=== PATIENT | male | born 1950 | race Caucasian/White ===

== ENCOUNTER 2018-02-13 13:12 | Day surgery (SDC) | payer OTHER, MEDICARE, SELFPAY ==
--- NOTE | 2018-02-13 | PATH_ITS ---
[facility] Accession Number: [id number] . 01 Material submitted: . COLON POLYP AT 25CM . 02 Diagnosis: Colon, Polyp at 25 cm, Biopsy: Tubular adenoma. The excision appears complete. MRV/02/15/2018 . 02 Electronically signed: . Rachel Lee MD, Pathologist NPI- [id number] . 01 Gross description: . COLON POLYP AT 25CM: Received in formalin is 1 fragment(s) of jean-baptiste, soft tissue measuring 1.5 x 1.4 x 1.1 cm which is inked, bisected and submitted entirely in 1 cassette(s) /CKI /CKI . 02 Pathologist provided ICD-10: D12.6 . 02 CPT . 495998 Specimen Comment: A duplicate report has been generated due to demographic updates. Performed at: [address] [facility] [address], [place], [place] [id number] MD Frank Hearn MD Phone: [phone] Performed at: 02 [facility] [address] [place], [place] [id number] MD Kd Farrell MD Phone: [phone]
[2018-02-13 13:39] VITALS: BP 142/79; PULSE 83; RESP 16; TEMP 36.3; O2SAT 97; BMI 28.7
--- NOTE | 2018-02-13 15:25 | PM.HP.1 ---
History of Present Illness Date Patient Seen: 02/13/18 Time Patient Seen: 15:25 Chief complaint: [id number] SCREENING COLONOSCOPY Narrative: Very pleasant and healthy 67-year-old gentleman here for his 1st screening colonoscopy. He denies any problems or symptoms related to the function of his GI tract. He reports that he needs a colonoscopy as part of her health maintenance program. Patient History Medical History Impaired vision (Acute) Surgical History History of vasectomy (Acute) Family & Social History Social History: household members none Review of Systems Review of Systems All systems reviewed & are unremarkable except as noted in HPI and below Exam Vital Signs (past 8 hours): - 02/13/18 13:39 Temperature 97.3 F L Pulse Rate 83 Respiratory Rate 16 Blood Pressure 142/79 H Pulse Oximetry 97 Oxygen Delivery Method Room Air Narrative Exam Narrative: Very pleasant well-nourished well-developed gentleman in no distress HEENT: Normocephalic and atraumatic, pupils equal round reactive to light accommodation with anicteric sclera Lungs: Clear to auscultation bilaterally Heart: Regular rate rhythm without murmur rub or gallop Abdomen: Soft, nontender, active bowel sounds Extremities: Warm well perfused Assessment & Plan Plan: Assessment/Plan Narrative: Geena gentleman who is remarkably healthy and presents for his 1st screening colonoscopy. We discussed the risks and benefits of the procedure the patient expressed desire to complete it today
[2018-02-13] MEDS: SODIUM CHLORIDE 0.9% 1,000 ML 84 ML IV (15:56)
[2018-02-13] MEDS: MIDAZOLAM 5 MG/5 ML VIAL 6 MG IV (16:11)
[2018-02-13] MEDS: fentaNYL 250 MCG/5 ML INJ IV (16:11)
--- NOTE | 2018-02-13 16:35 | PM.OP.1 ---
Operative Date/Time/Diagnoses Date of procedure: 02/13/18 Time of procedure: 16:35 Pre-op diagnosis: Screening Post-op diagnosis: same Procedure & Clinicians Procedure: Colonoscopy to the cecum with polypectomy Same procedure as scheduled: Yes Indications: No prior colonoscopy Surgeon: Sravanthi Mishra Click Yes if Unassisted: Yes Anesthesia Type: Sedation (Versed 9 mg; fentanyl 250 mcg) Operative Notes Findings: 1. Excellent prep 2. 2-3 cm pedunculated polyp on a long stalk at 25 cm from the anal verge. Removed with snare and cautery and retained for pathology 3. Significant sigmoid diverticulosis with large and small pockets. Relative sparing of the remainder of the colon. 4. Otherwise normal mucosa 5. Grade 1 internal hemorrhoids Closure Type: not applicable Estimated Blood Loss (mL): 1 Procedure in detail: After obtaining informed consent, the patient was brought to the GI suite and placed in the left lateral decubitus position on the examination table. After placement of appropriate monitors, the patient was given incremental doses of Versed and Fentanyl until an appropriate level of sedation was achieved. A time out was held per SCOAP protocol. A digital rectal examination was performed and did not reveal any masses or obstructing lesions. The colonoscope was gently passed into the patient's anus and the entire colon navigated to the level of the cecum with minimal difficulty. Once in the cecum, the scope was withdrawn being sure to go before and beyond all mucosal folds and prominences and get an excellent examination. At 25 cm from the anal verge and a sharp curve sigmoid colon, we noted a 2-3 cm polyp on a long stalk. The stalk itself was at least 1-2 cm long. The polyp was lassoed with a large snare and debrided with cautery. Multiple methods were employed to try to capture the polyp for pathology. We eventually were able to grasp the stalk of it with a large forceps and pull it into the rectal vault. From this point we were able to remove it. Other findings are noted above. At the level of the rectal vault, the scope was retroflexed and the internal anal canal was examined. The scope was straightened and air aspirated from the colon. The instrument was removed from the patient's body and the procedure was concluded. The patient was allowed to awaken from sedation without difficulty and taken to the post-anesthesia care unit in good condition. Condition: stable Disposition: PACU Plan for aftercare: 1. Discharge to home 2. We will contact you with pathology results and recommendations 3. Barring any unforeseen pathologic results, plan for next colonoscopy in 3 years
[2018-02-13 16:39] VITALS: BP 123/76; PULSE 73; RESP 18; TEMP 36.7; O2SAT 96
[2018-02-13 16:45] VITALS: BP 123/84; PULSE 80; RESP 16; O2SAT 96
[2018-02-13 16:47] VITALS: BP 123/87; PULSE 77; RESP 16; TEMP 36.6; O2SAT 97
--- NOTE | 2018-02-13 16:47 | SUR.PHASEI ---
stable pacu stay to opd.
[2018-02-13 16:59] VITALS: BP 135/87; PULSE 70; RESP 16; TEMP 36.9; O2SAT 98
--- NOTE | 2018-02-13 17:09 | SUR.PHASEII ---
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
--- NOTE | 2018-02-13 17:51 | SUR.PHASEII ---
pt arranged to have friend pick him up at truck and would drive him home, friend to drive his truck. pt left in stable condition.
== END 2018-02-13 17:20 | disposition home or self-care (01) ==
PROVIDERS: PCP Naturopath; Visit Provider Surgery
PROC: 0DJD8ZZ Inspection of Lower Intestinal Tract, Via Natural or Artificial Opening Endoscopic (ICD-10-PCS; CPT 45378; principal; 2018-02-13 14:15)
DX: Z12.11 Encounter for screening for malignant neoplasm of colon (principal); K57.30 Diverticulosis of large intestine without perforation or abscess without bleeding; K64.0 First degree hemorrhoids; D12.6 Benign neoplasm of colon, unspecified
CPT/HCPCS: 45385; J2250; J3010

== ENCOUNTER → 2018-07-26 12:48 | Outpatient (CLI) | payer OTHER, SELFPAY ==
--- NOTE | 2018-07-26 | DI.RAD.S_ITS ---
PROCEDURE: XR LUMBAR SPINE 2-3V INDICATIONS: RIGHT HIP AND LOW BACK PAIN, TECHNIQUE: 3 views of the lumbar spine were acquired. COMPARISON: None. FINDINGS: Bones: 5 doj-pye-jemstal vertebrae are present. L5 is sacralized. There is normal bony alignment. No vertebral body compression fractures. No suspicious bony lesions. There is mild to moderate degenerative disc disease throughout the lumbar spine. There is vuuo-mv-dqktxhdg SI joint degeneration bilaterally. Soft tissues: Overlying bowel gas pattern is normal. No suspicious soft tissue calcifications. IMPRESSION: 1. Multilevel degenerative disc disease. 2. Transitional anatomy with sacralization of L5. 3. 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 Dictated by: Dori Fierro M.D. on 07/26/2018 at 17:22 Approved by: Dori Fierro M.D. on 07/26/2018 at 17:25
--- NOTE | 2018-07-26 | DI.RAD.S_ITS ---
PROCEDURE: XR HIP W PEL IF DONE RT 2V INDICATIONS: RIGHT HIP AND LOW BACK PAIN, TECHNIQUE: AP pelvis with lateral view(s) of the right hip(s). COMPARISON: None. FINDINGS: Bones: No fractures or dislocations. Pelvic ring appears intact. No suspicious bony lesions. There is severe right hip joint degeneration with severe joint space narrowing, subchondral sclerosis and osteophyte formation. There is remodeling and deformity of right femoral neck. There is moderate left hip joint degeneration. Soft tissues: The visualized bowel gas pattern is normal. No suspicious soft tissue calcifications. IMPRESSION: 1. Severe right hip joint degeneration and moderate left hip joint degeneration. Dictated by: Dori Fierro M.D. on 07/26/2018 at 17:25 Approved by: Dori Fierro M.D. on 07/26/2018 at 17:27
[2018-07-26 13:55] LABS: Add Manual Diff / Slide Review NO; Basophils Absolute Auto 100 /uL (0-100); Eosinophils Absolute Auto 200 /uL (0-450); Eosinophils Percent Auto 2.9 % (2-4); Lymphocytes Absolute Auto 1900 /uL (1100-4500); Lymphocytes Percent Auto 26.6 % (25-40); Mean Corpuscular HGB Conc 33.4 % (30-36); Mean Corpuscular Hemoglobin 32.4 PG (26-34); Mean Corpuscular Volume 97.1 fL (80-100); Monocytes Absolute Auto 500 /uL (0-900); Monocytes Percent Auto 6.4 % (3-14); Neutrophils Absolute Auto 4600 /uL (1500-7000); Neutrophils Percent Auto 63.1 % (50-75); Platelet Count 286 X10^3/uL (150-400); Red Blood Cell Count 4.64 X10^6/uL (4.5-5.9); Red Cell Distribution Width 13.6 % (11.6-14.8); White Blood Cell Count 7.2 X10^3/uL (4.5-11.0)
[2018-07-26 14:04] LABS: Alanine Aminotransferase 27 IU/L (21-72); Albumin 4.4 g/dL (3.5-5.0); Albumin Globulin Ratio 1.4 (1.0-2.8); Alkaline Phosphatase 69 U/L (38-126); Aspartate Aminotransferase 24 IU/L (17-59); BUN Creatinine Ratio 17.5 (6-22); Bilirubin Total 0.6 mg/dL (0.2-1.3); Blood Urea Nitrogen 14 mg/dL (9-20); C-Reactive Protein Quant 0.5 mg/dL (<1.0); Calcium 9.5 mg/dL (8.4-10.2); Carbon Dioxide 30 mmol/L (22-32); Chloride 100 mmol/L (98-107); Cholesterol 249 mg/dL (140-199); Estimated Glomerular Filt Rate > 60.0 mL/min (>60); Globulin 3.1 g/dL (1.7-4.1); Glucose 93 mg/dL (80-110); HDL Cholesterol 67 mg/dL (40-60); HEMOLYSIS < 15 (0-50); LDL Cholesterol Calculated 156 mg/dL (<100); Potassium 3.9 mmol/L (3.4-5.1); Sodium 138 mmol/L (137-145); Total Protein 7.5 g/dL (6.3-8.2); Triglycerides 128 mg/dL (35-150)
== END ==
PROVIDERS: PCP Naturopath; Visit Provider Optometrist
DX: Z00.00 Encounter for general adult medical examination without abnormal findings (principal); M79.604 Pain in right leg; M25.551 Pain in right hip; M16.0 Bilateral primary osteoarthritis of hip; M54.5 Low back pain; M51.36 Other intervertebral disc degeneration, lumbar region; M43.27 Fusion of spine, lumbosacral region; M47.818 Spondylosis without myelopathy or radiculopathy, sacral and sacrococcygeal region
CPT/HCPCS: 36415; 72100; 73502; 80053; 80061; 85025; 86140

== ENCOUNTER → 2018-10-17 09:33 | Outpatient (CLI) | payer OTHER, SELFPAY ==
--- NOTE | 2018-10-17 | DI.MRI.S_ITS ---
PROCEDURE: MR HIP RT WO CON INDICATIONS: CHRONIC RIGHT HIP PAIN TECHNIQUE: Noncontrast coronal T1 spin echo and STIR through the bony pelvis. Coronal and axial T2 fast spin echo with fat saturation, sagittal T1 spin echo, and oblique axial T2 fast spin echo with fat saturation through the hip. COMPARISON: [facility], CR, XR HIP W PEL IF DONE RT 2V, 07/26/2018, 13:07. FINDINGS: Image quality: Excellent. Bones and joints: Severe right hip osteoarthritic degenerative changes with joint space narrowing, loss of articular cartilage, superior migration of femoral head, large marginal osteophytes flattening of the articular surface of the right femoral head, subchondral marrow reactive change, large joint effusion and synovitis. Moderate left hip osteoarthritic degenerative changes are noted with loss of articular cartilage, small marginal osteophytes and acetabular subchondral cyst formation. No intraosseous lesions or fractures. No avascular necrosis of the femoral heads. The visualized lower lumbar spine appears normally aligned. Tendons and ligaments: The gluteus medius and minimus tendons appear intact, without associated muscle atrophy. The nearby proximal iliotibial band also appears intact. The iliopsoas tendon appears intact, without adjacent bursal fluid collections or evidence for impingement syndrome. The origin of the hamstring tendon is intact at the ischial tuberosity, as well as the associated sacrotuberous ligament. The straight and reflected heads of the rectus femoris muscle origin appear intact, as well as the conjoint tendon. The ligamentum teres appears intact where visualized. Labrum and cartilage: The acetabular labrum appears intact in the absence of intra-articular contrast. Cartilage surface of the femoral head appears of normal thickness. The alpha angle of the femur is within normal limits at less than 55 degrees. Soft tissues: Visualized muscles demonstrate normal bulk and internal signal. Quadratus femoris muscle demonstrates no internal edema to suggest ischiofemoral impingement. The proximal sciatic neurovascular bundle appears normal adjacent to the hamstring tendons. No free pelvic fluid. Bladder wall thickness is normal. Genitourinary structures and bowel loops appear normal where visualized. IMPRESSION: 1. Severe right hip osteoarthritis with large joint effusion and synovitis. 2. Moderate left hip osteoarthritis. Dictated by: Trinidad Lafleur MD, PhD on 10/17/2018 at 13:46 Approved by: Trinidad Lafleur MD, PhD on 10/17/2018 at 21:34
== END ==
PROVIDERS: PCP Naturopath; Visit Provider Physical Medicine & Rehabilitation Pain Medicine
DX: M25.551 Pain in right hip (principal); M16.0 Bilateral primary osteoarthritis of hip; M65.88 Other synovitis and tenosynovitis, other site; M25.451 Effusion, right hip; G89.29 Other chronic pain
CPT/HCPCS: 73721

== ENCOUNTER → 2019-05-14 11:51 | Outpatient (CLI) | payer OTHER, SELFPAY ==
[2019-05-14 12:38] LABS: Add Manual Diff / Slide Review NO; Basophils Absolute Auto 100 /uL (0-100); Eosinophils Absolute Auto 200 /uL (0-450); Eosinophils Percent Auto 3.6 % (2-4); Hematocrit 44.1 % (41-53); Hemoglobin 15.3 g/dL (13.5-17.5); Lymphocytes Absolute Auto 1600 /uL (1100-4500); Lymphocytes Percent Auto 24.2 % (25-40); Mean Corpuscular HGB Conc 34.6 % (30-36); Mean Corpuscular Hemoglobin 33.6 PG (26-34); Mean Corpuscular Volume 97.3 fL (80-100); Monocytes Absolute Auto 400 /uL (0-900); Monocytes Percent Auto 6.5 % (3-14); Neutrophils Absolute Auto 4300 /uL (1500-7000); Neutrophils Percent Auto 64.7 % (50-75); Platelet Count 248 X10^3/uL (150-400); Red Blood Cell Count 4.53 X10^6/uL (4.5-5.9); Red Cell Distribution Width 13.1 % (11.6-14.8); White Blood Cell Count 6.6 X10^3/uL (4.5-11.0)
[2019-05-14 13:00] LABS: Alanine Aminotransferase 16 IU/L (<50); Albumin 4.5 g/dL (3.5-5.0); Albumin Globulin Ratio 1.9 (1.0-2.8); Alkaline Phosphatase 70 U/L (38-126); Aspartate Aminotransferase 23 IU/L (17-59); BUN Creatinine Ratio 17.1 (6-22); Bilirubin Total 0.9 mg/dL (0.2-1.3); Blood Urea Nitrogen 12 mg/dL (9-20); Calcium 9.8 mg/dL (8.4-10.2); Carbon Dioxide 29 mmol/L (22-32); Chloride 100 mmol/L (98-107); Estimated Glomerular Filt Rate > 60.0 mL/min (>60); Globulin 2.4 g/dL (1.7-4.1); Glucose 89 mg/dL (80-110); HEMOLYSIS < 15 (0-50); Potassium 4.2 mmol/L (3.4-5.1); Sodium 138 mmol/L (137-145); Total Protein 6.9 g/dL (6.3-8.2)
== END ==
PROVIDERS: PCP Naturopath; Visit Provider Naturopath
DX: Z01.818 Encounter for other preprocedural examination (principal)
CPT/HCPCS: 36415; 80053; 85025

== ENCOUNTER → 2021-08-04 13:00 | Outpatient (CLI) | payer MEDICARE, OTHER, SELFPAY ==
[2021-08-04 14:04] LABS: Add Manual Diff / Slide Review NO; Basophils Absolute Auto 0 /uL (0-100); Basophils Percent Auto 0.6 % (0-2); Eosinophils Absolute Auto 100 /uL (0-450); Eosinophils Percent Auto 1.8 % (2-4); Hematocrit 44.2 % (41-53); Lymphocytes Absolute Auto 1400 /uL (1100-4500); Mean Corpuscular Hemoglobin 33.7 PG (26-34); Mean Corpuscular Volume 99.1 fL (80-100); Monocytes Absolute Auto 500 /uL (0-900); Monocytes Percent Auto 7.7 % (3-14); Neutrophils Absolute Auto 4600 /uL (1500-7000); Neutrophils Percent Auto 68.9 % (50-75); Platelet Count 242 X10^3/uL (150-400); Red Blood Cell Count 4.46 X10^6/uL (4.5-5.9); Red Cell Distribution Width 12.9 % (11.6-14.8); White Blood Cell Count 6.6 X10^3/uL (4.5-11.0)
[2021-08-04 14:23] LABS: Alanine Aminotransferase 16 IU/L (<50); Albumin 4.5 g/dL (3.5-5.0); Albumin Globulin Ratio 1.5 (1.0-2.8); Alkaline Phosphatase 62 U/L (38-126); Aspartate Aminotransferase 27 IU/L (17-59); BUN Creatinine Ratio 9.5 (6-22); Bilirubin Total 0.7 mg/dL (0.2-1.3); Blood Urea Nitrogen 7 mg/dL (9-20); Calcium 9.4 mg/dL (8.4-10.2); Carbon Dioxide 29 mmol/L (22-32); Chloride 101 mmol/L (98-107); Cholesterol 223 mg/dL (140-199); Estimated Glomerular Filt Rate > 60.0 mL/min (>60); Glucose 84 mg/dL (80-110); HDL Cholesterol 62 mg/dL (40-60); HEMOLYSIS 19 (0-50); LDL Cholesterol Calculated 146 mg/dL (<100); Potassium 4.1 mmol/L (3.4-5.1); Sodium 139 mmol/L (137-145); Total Protein 7.5 g/dL (6.3-8.2); Triglycerides 77 mg/dL (35-150)
== END ==
PROVIDERS: PCP Naturopath; Referring Provider Naturopath; Visit Provider Naturopath
DX: Z00.00 Encounter for general adult medical examination without abnormal findings (principal)
CPT/HCPCS: 36415; 80053; 80061; 85025

== ENCOUNTER → 2021-09-16 12:39 | Outpatient (CLI) | payer MEDICARE, OTHER, SELFPAY ==
[2021-09-17 16:08] LABS: Fecal Immunochemical Test Negative (Negative)
== END ==
PROVIDERS: PCP Naturopath; Referring Provider Naturopath; Visit Provider Naturopath
DX: Z00.00 Encounter for general adult medical examination without abnormal findings (principal)
CPT/HCPCS: 82274

== ENCOUNTER → 2023-03-14 11:06 | Outpatient (CLI) | payer MEDICARE, OTHER, SELFPAY ==
[2023-03-14 12:46] LABS: Add Manual Diff / Slide Review NO; Basophils Absolute Auto 100 /uL (0-100); Basophils Percent Auto 0.8 % (0-2); Eosinophils Absolute Auto 200 /uL (0-450); Eosinophils Percent Auto 2.5 % (2-4); Hematocrit 45.1 % (41-53); Hemoglobin 15.6 g/dL (13.5-17.5); Lymphocytes Absolute Auto 1500 /uL (1100-4500); Lymphocytes Percent Auto 21.3 % (25-40); Mean Corpuscular HGB Conc 34.5 % (30-36); Mean Corpuscular Hemoglobin 33.5 PG (26-34); Mean Corpuscular Volume 97.1 fL (80-100); Monocytes Absolute Auto 500 /uL (0-900); Monocytes Percent Auto 7.1 % (3-14); Neutrophils Absolute Auto 4800 /uL (1500-7000); Neutrophils Percent Auto 68.3 % (50-75); Platelet Count 252 X10^3/uL (150-400); Red Blood Cell Count 4.65 X10^6/uL (4.5-5.9); Red Cell Distribution Width 12.9 % (11.6-14.8); White Blood Cell Count 7.1 X10^3/uL (4.5-11.0)
[2023-03-14 13:32] LABS: Alanine Aminotransferase 15 IU/L (<50); Albumin 4.3 g/dL (3.5-5.0); Albumin Globulin Ratio 1.6 (1.0-2.8); Alkaline Phosphatase 64 U/L (38-126); Aspartate Aminotransferase 22 IU/L (17-59); BUN Creatinine Ratio 16.4 (6-22); Bilirubin Total 0.8 mg/dL (0.2-1.3); Blood Urea Nitrogen 12 mg/dL (9-20); Calcium 9.8 mg/dL (8.4-10.2); Carbon Dioxide 30 mmol/L (22-32); Chloride 102 mmol/L (98-107); Cholesterol 269 mg/dL (140-199); Estimated Glomerular Filt Rate > 60 mL/min (>60); Globulin 2.7 g/dL (1.7-4.1); Glucose 81 mg/dL (80-110); HDL Cholesterol 67 mg/dL (40-60); HEMOLYSIS < 15 (0-50); LDL Cholesterol Calculated 179 mg/dL (<100); Potassium 4.6 mmol/L (3.4-5.1); Sodium 138 mmol/L (137-145); Triglycerides 116 mg/dL (35-150); Uric Acid 7.2 mg/dL (3.5-8.5)
== END ==
PROVIDERS: PCP Naturopath; Referring Provider Naturopath; Visit Provider Naturopath
DX: Z00.00 Encounter for general adult medical examination without abnormal findings (principal); M10.9 Gout, unspecified; Z12.11 Encounter for screening for malignant neoplasm of colon
CPT/HCPCS: 36415; 80053; 80061; 84550; 85025

== ENCOUNTER → 2023-04-13 09:55 | Outpatient (CLI) | payer MEDICARE, OTHER, SELFPAY ==
[2023-04-14 12:36] LABS: Fecal Immunochemical Test Negative (Negative)
== END ==
PROVIDERS: PCP Naturopath; Referring Provider Naturopath; Visit Provider Naturopath
DX: Z00.00 Encounter for general adult medical examination without abnormal findings (principal); M10.9 Gout, unspecified; Z12.11 Encounter for screening for malignant neoplasm of colon
CPT/HCPCS: 82274

== ENCOUNTER → 2024-04-02 12:08 | Outpatient (CLI) | payer MEDICARE, OTHER, SELFPAY ==
--- NOTE | 2024-04-02 12:12 | DI.RAD.S_ITS ---
PROCEDURE: XR HIP W PEL IF DONE LT 2V INDICATIONS: HIP PAIN TECHNIQUE: AP pelvis with lateral view(s) of the left hip(s). COMPARISON: [facility], , XR HIP W PEL IF DONE RT 2V, 07/26/2018, 13:07. FINDINGS: Bones: Right hip arthroplasty is grossly intact. There is moderate left hip joint space narrowing and small collar osteophytes. No acute fracture or dislocation. No suspicious bony lesions. Soft tissues: The visualized bowel gas pattern is normal. No suspicious soft tissue calcifications. IMPRESSION: Moderate left hip osteoarthritis. Dictated by: Mariza Patel M.D. on 04/02/2024 at 15:13 Approved by: Mariza Patel M.D. on 04/02/2024 at 15:14
== END ==
LOC: RAD 12:10
PROVIDERS: PCP Naturopath; Referring Provider Naturopath; Visit Provider Naturopath
DX: M25.552 Pain in left hip (principal); M16.12 Unilateral primary osteoarthritis, left hip
CPT/HCPCS: 73502

== ENCOUNTER 2024-12-06 10:23 | Day surgery (SDC) | payer MEDICARE, SELFPAY ==
[2024-12-04 08:10] VITALS: BMI 28.3
[2024-12-06] VITALS (8 sets, daily range): BP systolic 82–147; BP diastolic 50–84; PULSE 16–63; RESP 12–100; TEMP 36.3–36.7; O2SAT 95–99; BMI 28.4
[2024-12-06] MEDS: LACTATED RINGERS 1,000 ML 42 ML IV ×2 (11:23→13:37)
[2024-12-06] MEDS: ACETAMINOPHEN 325 MG TABLET 975 MG PO (11:23)
--- NOTE | 2024-12-06 11:37 | PM.PREOP ---
Pre-operative Note Interval Note History & Physical reviewed/Exam performed by Physician: Yes Changes to H&P: No ASA Class (for procedural sedation): I
[2024-12-06] MEDS: CEFAZOLIN 2 GM/100 ML PREMIX 100 ML IV (12:25)
--- NOTE | 2024-12-06 12:37 | SUR.OPER ---
Supine on padded OR bed, BED PADDED WITH PINK PAD POSITIONER, head on pillow, arms padded and tucked at sides, legs uncrossed, safety belt at thigh, PURPLE STRAP ACROSS CHEST.
[2024-12-06] MEDS: BUPIVACAINE 0.5% W/ EPI (PF) 30 ML VIAL INJ (12:42)
--- NOTE | 2024-12-06 13:20 | P.OP_ITS ---
Operative Date/Time/Diagnoses Date of procedure: 12/06/24 Time of procedure: 13:20 Pre-op diagnosis: LIH Post-op diagnosis: same Procedure & Clinicians Procedure: Laparoscopic LEFT inguinal hernia repair with mesh, TEP Same procedure(s) as scheduled: Yes Indications: 74yo M with initial, reducible LIH Surgeon: Terry Bates [facility] Physicist: Honorio Zaragoza Anesthesia Type: General Operative Notes Findings: Direct LIH Closure Type: primary Specimen(s): none sent Prosthetic devices, grafts, tissues, transplants, or devices: LIH mesh, Bard, large Applied: other (mesh) Estimated Blood Loss (mL): 5 Blood products transfused: none Procedure in detail: After informed consent and satisfactory general endotracheal anesthesia the abdomen and groins were shaved, prepped and draped in the usual sterile manner. The left side, the correct side, was marked in the preoperative holding area. Surgical time-out was performed to ensure we had the proper patient, position and procedure with all team members in agreement. An infraumbilical incision was made with the #11 blade knife and continued through the skin and subcutaneous tissues. I used 30 cc total of 0.5% Marcaine with epinephrine both preemptively on the skin and an ilioinguinal block on the left side under direct vision once the lateral space was dissected. The subcutaneous tissues were bluntly dissected off of the anterior rectus sheath with S retractors. The fascia was scored and an 0 Vicryl egnqym-rj-ecbko suture was placed in the anterior rectus sheath. The rectus muscle was bluntly dissected laterally and t he preperitoneal space was entered and dissected free under direct vision with the camera. We dissected down to the pubic bone and Brayan's ligament and created space laterally. The 12 mm Holden trocar was inserted and the preperitoneal space was insufflated to a pressure of 12 mmHg with carbon dioxide gas. This allowed two, 5 mm trocars to be inserted under direct vision and local anesthetic was used on the skin. The pubic bone medially and beyond to the other side and the Brayan's ligament in the medial and lateral spaces were dissected free. The inferior epigastric vessels were identified and preserved. Care was taken to avoid dissecting the lateral fat pad where the nerves are located. We dissected the area medial to the anterior superior iliac spine and an ilioinguinal nerve block was performed injecting 10 cc of 0.5% Marcaine with epinephrine raising a wheal of anesthetic in the transversus muscle. The patient was noted to have a moderate sized direct defect. This sac was imbricated and lassoed using an endoloop of 0 PDS. This imbricated nicely to avoid the postoperative seroma formation. A Bard 3D mesh large size was selected and unrolled in the myopectineal orifice which covered all potential hernia defects nicely particularly the direct defect was well covered. We made sure to extend the mesh past the pubic bone medially. The peritoneal lining had been dissected proximal to the inferior margin of the mesh. I held the inferior margin of the mesh while watching the carbon dioxide gas release from the preperitoneal space and the mesh was noted to lay flat with no wrinkling. The 0 Vicryl cueqev-sb-mavcb suture was tied with no palpable fascial defects. The skin incisions were closed using 4-0 Monocryl in a subcuticular manner. Dermabond glue was applied as a final dressing. The estimated blood loss was minimal. The instrument sponge and needle counts were all correct x2. The patient tolerated the procedure well and was extubated in the operating room and transported to the recovery area in stable condition Complications: none Post-operative Condition: stable Disposition: PACU Plan for aftercare: PACU then home
--- NOTE | 2024-12-06 13:35 | SUR.PHASEI ---
Dr Mcdaniel at bedside administering 0.25 mg of glycopyrolate for bradycardia and hypotension. Patient remains asymptomatic.
--- NOTE | 2024-12-06 14:37 | PC.NURSE ---
Patient able to void prior to discharge. Home with friend, Av, in stable condition.
== END 2024-12-06 14:37 | disposition home or self-care (01) ==
PROVIDERS: PCP Naturopath; Referring Provider Surgery; Visit Provider Surgery
PROC: 0YQ64ZZ Repair Left Inguinal Region, Percutaneous Endoscopic Approach (ICD-10-PCS; CPT 49650; principal; 2024-12-06 11:45)
DX: K40.90 Unilateral inguinal hernia, without obstruction or gangrene, not specified as recurrent (principal)
CPT/HCPCS: 49650; C1781; J0690; J1100; J2405; J2704; J3010; J3490